=== PATIENT | female | born 1990 | race Two or more races ===

== ENCOUNTER 2019-12-23 14:45 | Inpatient (IN) | payer OTHER ==
[~2019-12-23] VITALS: Ht 167.6 cm; Wt 3.6 kg
[2019-12-27] MEDS ORDERED: LABETALOL HCL100 MG PO (11:09)
[2019-12-27] MEDS ORDERED: LEVOTHYROXINE25 MCG PO (11:09)
[2019-12-27] MEDS ORDERED: FOLIC ACID20 MG PO (11:39)
[2019-12-27] MEDS ORDERED: PRENATAL TABLE1 EAC1 PO (11:39)
== END 2019-12-31 14:18 | disposition home or self-care (01) | DRG 788 ==
LOC: LDR 12-27 10:16 → OB/GYN 12-27 10:16 → O/R 12-27 19:01 → OB/GYN 12-27 20:46
PROVIDERS: ADMIT Obstetrics & Gynecology; ATTEND Obstetrics & Gynecology
PROC: 4A1HXFZ Monitoring of Products of Conception, Cardiac Rhythm, External Approach (ICD-10-PCS; 2019-12-27)
PROC: 3E033VJ Introduction of Other Hormone into Peripheral Vein, Percutaneous Approach (ICD-10-PCS; 2019-12-27)
PROC: 10907ZC Drainage of Amniotic Fluid, Therapeutic from Products of Conception, Via Natural or Artificial Opening (ICD-10-PCS; 2019-12-27)
PROC: 10D00Z1 Extraction of Products of Conception, Low, Open Approach (ICD-10-PCS; principal; 2019-12-27 17:00)
DX: O24.424 Gestational diabetes mellitus in childbirth, insulin controlled (principal); Z3A.37 37 weeks gestation of pregnancy; Z37.0 Single live birth; Z20.828 Contact with and (suspected) exposure to other viral communicable diseases